=== PATIENT | female | born 1950 | race Caucasian/White ===

== ENCOUNTER 2018-02-12 10:21 | Outpatient (CLI) | payer OTHER | END 2018-02-12 10:38 | disposition home or self-care (01) | LOC: RAD 10:21 | DX: S83.203A Other tear of unspecified meniscus, current injury, right knee, initial encounter (principal); M17.0 Bilateral primary osteoarthritis of knee | CPT/HCPCS: 73718; 73721 ==

== ENCOUNTER 2018-08-24 12:47 | Outpatient (CLI) | payer OTHER | END 2018-08-24 17:05 | disposition home or self-care (01) | LOC: MRI 12:47 | DX: M60.88 Other myositis, other site (principal); M54.12 Radiculopathy, cervical region; C57.7 Malignant neoplasm of other specified female genital organs; M54.17 Radiculopathy, lumbosacral region | CPT/HCPCS: 72141; 72148 ==